=== PATIENT | female | born 1985 | race Caucasian/White ===

== ENCOUNTER 2017-11-24 18:53 | Emergency (ER) | payer OTHER ==
[~2017-11-24] VITALS: Ht 165.1 cm; Wt 86.2 kg
[2017-11-24 18:55] VITALS: BP 121/80
--- NOTE | 2017-11-24 19:00 | NUR ---
31 YO F BIB SELF W/ C/O FACIAL AND BILATERAL FOOT SWELLING SINCE THIS MORNING. PT REPORTS THAT SHE FIRST NOTICED IT WHEN GETTING READY FOR WORK. PT PRESENTS TO ED AMBULATORY W/ STEADY GAIT. BILATERAL ANKLE/FOOT SWELLING NOTED. +1 PITTING LEFT ANKLE. CAP REFILL ABOUT 4-5 SECONDS OF LEFT FOOT. DENIES N/V/D/FEVERS. DENIES DIZZINESS/HEADACHES. PT REPORTS THAT SHE DOES NOT DRINK ENOUGH WATER. DENIES DYSURIA. REPORTS THAT THIS HAS HAPPENED AGAIN IN THE PAST WHEN SHE HAS BEEN DEHYDRATED ALONGSIDE ALCOHOL/SUN EXPOSURE. AAOX4. GCS 15. PULSES PALPABLE IN ALL EXTREMITIES 2+.
--- NOTE | 2017-11-24 19:47 | NUR ---
Patient discharged with v/s stable. Written and verbal after care instructions given and explained. Patient verbalized understanding. Ambulatory with steady gait. All questions addressed prior to discharge. Advised to follow up with PMD.
[2017-11-24 19:49] VITALS: BP 127/73
== END 2017-11-24 19:47 | disposition home or self-care (01) ==
LOC: MED 18:53
DX: R60.0 Localized edema (principal)
CPT/HCPCS: 99281

== ENCOUNTER 2019-10-11 16:42 | Emergency (ER) | payer OTHER, SELFPAY ==
[~2019-10-11] VITALS: Ht 165.1 cm; Wt 83.9 kg
[2019-10-11 16:47] VITALS: BP 133/62
--- NOTE | 2019-10-11 16:48 | NUR ---
PT PLACED IN TENT FOR COVID PRECAUTIONS
--- NOTE | 2019-10-11 16:51 | NUR ---
33 Y/O FEMALE FROM HOME C/O COUGH, BODY ACHES, AND SORE THROAT SINCE YESTERDAY. PT STATES PERSISTENT DRY COUGH. RR EVEN AND UNLABORED, NO RESPIRATORY DISTRESS. PT STATES HER SISTER WAS TESTED + FOR COVID19 APPROX 1 WK AGO. AWAKE AND ALERT. VSS. MEDHX: DENIES
--- NOTE | 2019-10-11 17:13 | NUR ---
COVID-19 SWAB COLLECTED FROM PT
[2019-10-11 17:14] VITALS: BP 133/62
--- NOTE | 2019-10-11 17:14 | NUR ---
Noah woodardindira in [facility] - 10/11/19 at 1714 by [email or web address] COVID 19 SWAB COLLECTED FROM PT
--- NOTE | 2019-10-15 20:44 | NUR ---
PT POSITIVE FOR COVID-19. RESULTS-SENT TO INFECTION CONTROL AND HOUSE SUP
== END 2019-10-11 17:14 | disposition home or self-care (01) ==
LOC: MED 16:42 → EEVIPCON 16:42 → MED 17:14
DX: U07.1 COVID-19 (principal); J02.9 Acute pharyngitis, unspecified; M79.10 Myalgia, unspecified site; R05 Cough
CPT/HCPCS: 99283; U0003